=== PATIENT | female | born 1955 | race Two or more races ===

== ENCOUNTER 2025-04-07 13:34 | Outpatient (AMB) | payer MEDICARE, MEDICAID, SELFPAY ==
[2025-04-07 13:48] VITALS: BP 114/64; PULSE 69; RESP 19; TEMP 36.4; O2SAT 96; BMI 30.4
--- NOTE | 2025-04-07 13:48 | ORTHONT_ITS ---
Vital signs 04/07/25 13:48 Height 1.6 m Height Method Stated Weight 77.819 kg Weight Measurement Method Standing Scale BMI 30.4 BP 114/64 Blood Pressure Source Automatic Cuff Blood Pressure Location Left Upper Arm Position Sitting Respiration 19 Pulse 69 Pulse Source Monitor Temp 97.6 F Temp Source Temporal Artery Scan Pulse Oximetry (%) 96 Oxygen Delivery Method Room Air Med/Allergies Allergies & Medications Allergies No Known Allergies Allergy (Verified 04/07/25 13:50) Medication Reconciliation Unobtainable 04/07/25 [History Confirmed 04/07/25] Exam Exam Patient is in no acute distress and is cooperative with the examination today. Breathing is nonlabored. In no respiratory distress. Bilateral extremities were evaluated and demonstrates sensation intact to light touch. Palpable pedal pulses are present. No significant edema is present. Bilateral hips were examined. The patient has no pain with log roll of the hips. Internal rotation to 30 degrees and external rotation to 30 degrees is painless. Negative FADIR. The left knee was examined. The left knee is in varus alignment. Range of motion from 0-115 degrees. Knee is stable to varus and valgus as well as AP translation with <5mm. Patient has a negative McMurrays. There is no pain with patellofemoral compression and no crepitus noted. The knee is tender to palpation medially. The right knee was also examined. The right knee is in varus alignment. Range of motion from 0-120 degrees. Knee is stable to varus and valgus as well as AP translation with <5mm. Patient has a negative McMurrays. There is no pain with patellofemoral compression and no crepitus noted. The knee is tender to palpation medially. Assessment and Plan Problem List (1) Degenerative arthritis of knee, bilateral: Status: Acute Plan: Patient is a pleasant 70-year-old female with bilateral knee pain and bilateral knee arthritis. She actually has radicular pain that she is only down her leg. It almost sounds nervelike. I would like to get weightbearing x-rays to see the severity of the arthritis. She has no recent x-rays. We will see her back after that is done we can thus discuss different treatment options including cortisone injections to help differentiate the pain Advanced Care Planning Discussion Advance care planning discussed with:: patient and spouse Office Procedures GNS Level of Care Nursing/Assessment Patient Status: Initial/New Patient Nursing Assessment/Reassesment: Medication Reconciliation, Update PMH in EMR and Vital Signs Coordination of Care: Complex Care and Chronic Disease 1-5, Education Complex Pt/Fam, Consent,records obtained, informed consent, 1 Ins Authorization, Lab and Imaging orders, Results/Orders obtained and Staff clarify orders New Patient Charge New Patient Point Assignment: 1124 New Patient Point Charge: [employer] Level 4 ([id number]) [place] Intake Visit Data Collection New Patient or Established: New Patient (never been to [facility]) Reason for Visit:: BL KNEE PAIN Seen by Clinical Staff ONLY (RN/MA): No PCP or OBGYN visit in last 3 months: Yes Hx Now: No Do You Feel Safe at Home: Yes Authorities Contacted: N/A Questionairres Past Medical History Past Medical History Have you ever been diagnosed with any of the following: Cardiology Problems Hypercholesterolemia: Yes Hypertension: Yes Respiratory Problems Smoking: No Smoking Exposure: No Endocrine Problems Diabetes Mellitus Type 1: Yes Hyperthyroidism: Yes Subjective Visit Visit for: new patient, hip and knee Immunization / Flu Flu Vaccine in the Last 12 Months: No Flu Vaccine Exclusion Criteria: No Exclusion Criteria History of Present Illness Chief complaint: Bilateral knee pain Patient is a pleasant 70-year-old female with bilateral knee pain. She reports that she has pain that starts in the buttocks and radiates all the way down to her feet. There is associated numbness and tingling. She reports is very difficult when she is sitting down for a long period of time Pain Pain level (0-10): 6 Pain duration: ON AND OFF Pain location: inside (medial) and anterior Pain quality: dull and aching Pain timing: night and increases with activity Associated signs & symptoms: none Ambulatory data Ambulatory device: none Treatments Improvement with previous injections: No Improvement with PT: No Improvement with NSAIDS: no Review of Systems Review of Systems: All systems negative unless otherwise noted in HPI.
--- NOTE | 2025-04-07 13:51 | XR_ITS ---
Examination: Lumbar spine 3 views TECHNIQUE: AP lateral coned lateral lower lumbar spine 3 views Date and time: April 07, 2025 1421 hours INDICATIONS: Low back pain 6 years. FINDINGS: Adequate alignment lumbar vertebral bodies Diffuse [id number] lumbar disc narrowing most prominent L4-L5 No spondylolisthesis IMPRESSION: Diffuse [id number] lumbar disc narrowing, most prominent L4-L5
--- NOTE | 2025-04-07 13:51 | XR_ITS ---
Examination: Bilateral knees 2 views Right lateral knee left lateral knee 2 views Bilateral axial knees single view TECHNIQUE: Bilateral AP knees standing single view, bilateral PA knees standing single view flexion Standing right lateral knee left lateral knee 2 views Bilateral axial knees single view total 5 views Date and time: April 07, 2025 1358 hours INDICATIONS: Bilateral knee pain 6 years. FINDINGS: Prominent osteopenia Severe narrowing medial joint space right knee, [id number] Significant osteoarthritis right patellofemoral joint Moderate to advanced medial joint space left knee Moderate osteoarthritis left patellofemoral joint IMPRESSION: Severe narrowing medial joint space right knee, [id number] Significant osteoarthritis right patellofemoral joint
== END 2025-04-07 13:54 | disposition home or self-care (01) ==
LOC: HODSRG 13:34
PROVIDERS: PCP Family Medicine; Referring Provider Family Medicine; Supervising Provider Orthopaedic Surgery Adult Reconstructive Orthopaedic Surgery; Visit Provider Orthopaedic Surgery Adult Reconstructive Orthopaedic Surgery
DX: M17.0 Bilateral primary osteoarthritis of knee (principal); M54.50 Low back pain, unspecified
CPT/HCPCS: 72100; 73564; 99204; G0463

== ENCOUNTER 2025-05-05 09:09 | Outpatient (AMB) | payer MEDICARE, MEDICAID, SELFPAY ==
--- NOTE | 2025-05-05 09:40 | ORTHONT_ITS ---
Vital signs 05/05/25 09:41 Height 1.6 m Height Method Stated Weight 77.167 kg Weight Measurement Method Standing Scale BMI 30.1 BP 108/73 Blood Pressure Source Automatic Cuff Blood Pressure Location Left Upper Arm Position Sitting Respiration 18 Pulse 64 Pulse Source Monitor Temp 97.2 F Temp Source Temporal Artery Scan Pulse Oximetry (%) 97 Oxygen Delivery Method Room Air Med/Allergies Allergies & Medications Allergies No Known Allergies Allergy (Verified 05/05/25 09:43) Medication Reconciliation Unobtainable 04/07/25 [History Confirmed 05/05/25] Exam Exam Patient is in no acute distress and is cooperative with the examination today. Breathing is nonlabored. In no respiratory distress. Bilateral extremities were evaluated and demonstrates sensation intact to light touch. Palpable pedal pulses are present. No significant edema is present. Bilateral hips were examined. The patient has no pain with log roll of the hips. Internal rotation to 30 degrees and external rotation to 30 degrees is painless. Negative FADIR. The left knee was examined. The left knee is in varus alignment. Range of motion from 0-115 degrees. Knee is stable to varus and valgus as well as AP translation with <5mm. Patient has a negative McMurrays. There is no pain with patellofemoral compression and no crepitus noted. The knee is tender to palpation medially. The right knee was also examined. The right knee is in varus alignment. Range of motion from 0-120 degrees. Knee is stable to varus and valgus as well as AP translation with <5mm. Patient has a negative McMurrays. There is no pain with patellofemoral compression and no crepitus noted. The knee is tender to palpation medially. bilateral knee xrays demonstrate coimplete joint space narrowing medially worse on the right. Assessment and Plan Problem List (1) Degenerative arthritis of knee, bilateral: Status: Acute Plan: Patient is a pleasant 70-year-old female with bilateral knee pain and bilateral knee arthritis. She actually has radicular pain that she is only down her leg. It almost sounds nervelike. I would like to get weightbearing x-rays to see the severity of the arthritis. She has no recent x-rays. We will see her back after that is done we can thus discuss different treatment options including cortisone injections to help differentiate the pain. We Will also get a spine MRI today As she is significant numbness and tingling rating down her leg Recommend knee cortisone injection as patient would like to proceed with conservative treatment at this time. The risks and benefits of the procedure were reviewed with the patient and patient gave verbal consent to continue with the procedure. Procedure: performed by Dr. Brown Using sterile technique the Right knee was thoroughly prepped with alcohol, and approximately 1 cc of Kenalog 40 mg/mL and 4 cc of 1% lidocaine was injected without resistance into the medial tibial femoral joint space. The patient tolerated the procedure. Advanced Care Planning Discussion Advance care planning discussed with:: patient Office Procedures GNS Level of Care Nursing/Assessment Patient Status: Established Patient Nursing Assessment/Reassesment: Medication Reconciliation, Update PMH in EMR and Vital Signs Coordination of Care: Complex Care and Chronic Disease 1-5, Education Complex Pt/Fam, Consent,records obtained, informed consent, Results/Orders obtained and Staff clarify orders Established Patient Charge Established Patient Point Assignment: 95 Established Patient Point Charge: EP Level 3 (80-115) Surgical Proc/IM SQ injection Major Surgical Procedure: Yes (KNEE INJECTION) Medication Given Medication Given Medication Given: Yes Documented Dose Given: 4 Route: Infiitration Medication Given Medication Given Medication Given: Yes Documented Dose Given: 1 Route: Infiitration Office Meds Xylocaine 10 mg/mL (1 %) injection solution Performing Provider: Jared Brown MD Performing Location: [facility] Administered by: Jared Brown MD on 05/05/25 10:17 Dose Route Admin Location Dispensed Lot Number Expiration Date [facility] Hospital Clerk 20 mL Infiltration 20 mL [id number] 08/09/28 22893-607-19 [facility] triamcinolone acetonide 40 mg/mL suspension for injection Performing Provider: Jared Brown MD Performing Location: [facility] Administered by: Jared Brown MD on 05/05/25 10:17 Dose Route Admin Location Dispensed Lot Number Expiration Date [facility] Hospital Clerk 40 mg intra-articular KNEE 1 mL [id number] 12/09/26 42329-842-43 LUCAS ALSTON [place] Intake Visit Data Collection New Patient or Established: Established Patient (seen at [facility] within 3 years) Reason for Visit:: XRAY RESULTS Seen by Clinical Staff ONLY (RN/MA): No PCP or OBGYN visit in last 3 months: Yes Hx Now: No Do You Feel Safe at Home: Yes Authorities Contacted: N/A Questionairres Past Medical History Past Medical History Have you ever been diagnosed with any of the following: Cardiology Problems Hypercholesterolemia: Yes Hypertension: Yes Respiratory Problems Smoking: No Smoking Exposure: No Endocrine Problems Diabetes Mellitus Type 1: Yes Hyperthyroidism: Yes Subjective Visit Visit for: follow up visit and x-rays Immunization / Flu Flu Vaccine in the Last 12 Months: No Flu Vaccine Exclusion Criteria: No Exclusion Criteria History of Present Illness Chief complaint: Bilateral knee pain Patient is a pleasant 70-year-old female with bilateral knee pain. She reports that she has pain that starts in the buttocks and radiates all the way down to her feet. There is associated numbness and tingling. She reports is very difficult when she is sitting down for a long period of time. Pain Pain level (0-10): 6 Pain duration: ALL DAY Pain location: anterior Pain quality: sharp, dull and aching Pain timing: increases with activity and stairs Associated signs & symptoms: none Ambulatory data Ambulatory device: none Treatments Improvement with previous injections: No Improvement with PT: No Improvement with NSAIDS: no Review of Systems Review of Systems: All systems negative unless otherwise noted in HPI.
[2025-05-05 09:41] VITALS: BP 108/73; PULSE 64; RESP 18; TEMP 36.2; O2SAT 97; BMI 30.1
== END 2025-05-05 10:05 | disposition home or self-care (01) ==
LOC: HODSRG 09:09
PROVIDERS: PCP Family Medicine; Referring Provider Family Medicine; Supervising Provider Orthopaedic Surgery Adult Reconstructive Orthopaedic Surgery; Visit Provider Orthopaedic Surgery Adult Reconstructive Orthopaedic Surgery
DX: M17.0 Bilateral primary osteoarthritis of knee (principal); M25.562 Pain in left knee; M25.561 Pain in right knee; E78.00 Pure hypercholesterolemia, unspecified; E10.9 Type 1 diabetes mellitus without complications
CPT/HCPCS: 20610; 99213; J3301; J3490; G0463